=== PATIENT | female | born 1975 | race Caucasian/White ===

== ENCOUNTER 2017-05-31 12:40 | Emergency (ER) | payer OTHER ==
[~2017-05-31] VITALS: Ht 175.3 cm; Wt 113.5 kg
[2017-05-31 12:41] VITALS: BP 130/77; PULSE 90; RESP 18; TEMP 98.5; O2SAT 98
[2017-05-31] MEDS ORDERED: QUET400T PO (14:10)
[2017-05-31] MEDS ORDERED: FLUO40CA PO (14:10)
[2017-05-31] MEDS ORDERED: GABA800T PO (14:10)
[2017-05-31] MEDS ORDERED: ADVA250A INH (14:10)
[2017-05-31] MEDS ORDERED: METH40TA PO (14:10)
[2017-05-31] MEDS ORDERED: FLUT50SP EACH NARE (14:10)
[2017-05-31] MEDS ORDERED: ALPR1TAB3 PO (14:10)
[2017-05-31] MEDS ORDERED: LORA-650 PO (14:10)
[2017-05-31 14:17] VITALS: BP 127/69; PULSE 84; RESP 19; TEMP 98.2; O2SAT 98
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
[2017-05-31 15:28] LABS: AUTOMATED NEUTROPHIL # 3.8 TH/MM3 (1.8-7.7); BASOPHIL % 0.6 % (0.0-2.0); EOSINOPHIL # 0.3 TH/MM3 (0-0.4); EOSINOPHIL % 3.9 % (0.0-4.0); HEMATOCRIT 33.6 % (35.0-46.0); HEMO FLAGS DIFF FINAL; LYMPH % 33.9 % (9.0-44.0); LYMPHOCYTE # 2.3 TH/MM3 (1.0-4.8); MEAN CELL VOLUME 91.4 FL (80.0-100.0); MEAN CORPUSCULAR HEMOGLOBIN 31.4 PG (27.0-34.0); MEAN CORPUSCULAR HGB CONC 34.4 % (32.0-36.0); MONO % 6.4 % (0.0-8.0); NEUT % 55.2 % (16.0-70.0); PLATELET COUNT 261 TH/MM3 (150-450); RED BLOOD COUNT 3.68 MIL/MM3 (4.00-5.30); RED CELL DISTRIBUTION WIDTH 14.8 % (11.6-17.2); WHITE BLOOD COUNT 6.9 TH/MM3 (4.0-11.0)
[2017-05-31] MEDS ORDERED: MORPHINE SULFATE 4 MG/ML INJ IV PUSH ONE (15:30)
--- NOTE | 2017-05-31 15:55 | RADRPT ---
EXAM DATE/TIME: 05/31/2017 15:24 [facility] COMPARISON: No previous studies available for comparison. INDICATIONS : Bilateral feet swelling. MEDICAL HISTORY : Asthma. Depression. Anxiety. Bilateral feet swelling. SURGICAL HISTORY : Tonsillectomy. Laminectomy. ENCOUNTER: Initial ACUITY: 4 - 6 days PAIN SCORE: 10/10 LOCATION: Bilateral legs. TECHNIQUE: Venous ultrasound of the left and right leg was performed from the inguinal ligament to the proximal calf. Real-time, color Doppler and spectral tracing, compression and augmentation techniques were us ed. FINDINGS: RIGHT LEG: There is normal compressibility of the deep venous system from the inguinal region to the proximal ca lf. No echogenic clot is seen in the lumen of the common femoral, femoral, popliteal, and posterior tibial veins. There is a normal response of the venous system to proximal and distal augmentation an d respiration. There is a prominent right groin lymph node with normal fatty hilum measuring 5.4 x 2. 4 x 1.1 cm. LEFT LEG: There is normal compressibility of the deep venous system from the inguinal region to the proximal ca lf. No echogenic clot is seen in the lumen of the common femoral, femoral, popliteal, and posterior tibial veins. There is a normal response of the venous system to proximal and distal augmentation an d respiration. CONCLUSION: No evidence of deep venous thrombosis within the lower extremities. Sam Rushing MD on May 31, 2017 at 15:52 Board Certified Radiologist. This report was verified electronically.
[2017-05-31 16:06] LABS: BICARBONATE 26.7 MEQ/L (21.0-32.0); POTASSIUM 3.9 MEQ/L (3.5-5.1)
[2017-05-31 17:13] VITALS: BP 152/78
== END 2017-05-31 17:16 | disposition home or self-care (01) ==
LOC: NEPD 12:40
DX: M54.5 Low back pain (principal); G89.29 Other chronic pain; R60.9 Edema, unspecified; J45.909 Unspecified asthma, uncomplicated; F31.9 Bipolar disorder, unspecified; F41.9 Anxiety disorder, unspecified; F32.9 Major depressive disorder, single episode, unspecified; Z72.0 Tobacco use; Z79.52 Long term (current) use of systemic steroids
CPT/HCPCS: 72100; 80048; 83880; 85025; 93970; 96374; 99285; J2270